=== PATIENT | male | born 1950 | race Caucasian/White ===

== ENCOUNTER 2020-04-09 09:44 | Inpatient (IN) ==
--- NOTE | 2020-04-09 10:43 | DR.SOBA ---
HPI Time Seen Time Seen by Provider: 04/09/20 10:38 Primary Care Physician Primary Care Physician: vaibhav rodriguez HPI Comment HPI Comment: PATIENT IS 69YR OLD MALE IN ER WITH COUGH, CONGESTION, FEVER AND INCREASING SOB TIMES 2 WEEKS. HE IS WEAK AND AND NAUSEATED AND HAVING GENERALIZED MUSCLES PAIN. TREATED AT HOME BUT WORSE TODAY. O2 SATURATION IS DEC REASING AND WEAKNESS IS ALSO WORSE TODAY. MUSCLE PAIN 8/10 ACHING PAIN. FEVER OVER 103'F. CURRENTLY FEBRILE IN ER. COVID 19 TEST IN ER IS POSITIVE. HISTORY DM, CAD AND CIRRHOSIS. Complaints Chief Complaint Doctors Comments: INCREASING SOB, FEVER AND COUGH WITH NAUSEA TIMES 2 WEEKS. Chief Complaint:: shortness of breath foer the last 2 weeks, with pending test, nause and fever up to 103 COVID-19 Coronavirus risk:travel/contact w/high risk person: No Has patient experienced Coronavirus symptoms: Yes Coronavirus symptoms experienced: Fever, Coughing and Shortness of Breath Source History Provided: Patient Mode of Arrival Mode of Arrival: Ambulatory Timing Onset of Chief Complaint: 03/28/20 Duration Duration: Weeks Context Onset:: At Rest PE Risk Factors:: None History of:: None Currently on:: Neither Prehospital Care:: None Modifying Factors Worsens:: Exertion Improves:: Rest Associated Signs and Symptoms Associated Signs and Symptoms: Cough If Chest Pain Quality: Pleuritic Location: Substernal If Cough Cough: Nonproductive PMH PMH Past Medical History: Yes Past Medical History: Anemia, Cirrhosis, Coronary Artery Disease, Diabetes, Dyslipidemia and GERD Past Surgical History: Yes Surgical History: CABG/Valve Surgery Family History History of Family Medical Conditions: Yes Family Medical History: Coronary Artery Disease and Hypertension Social History Type of Tobacco Use: None Does any household member use tobacco: No Alcohol Use: None Do you use any recreational Drugs:: No Lives With: Family Lives Where: Home Travel Risk Coronavirus risk:travel/contact w/high risk person: No Has patient experienced Coronavirus symptoms: Yes Coronavirus symptoms experienced: Fever, Coughing and Shortness of Breath Infectious screening In the last 2 months have you had wt loss of >10#?: NO Have you had fever, night sweats or hemotysis?: No Have you traveled outside the country in the last 6 months?: No Isolation: Droplet ROS Review of Systems Constitutional: See HPI, Fever, Weakness, Fatigue and Loss of Appetite Eyes: No Symptoms Reported and See HPI ENTM: See HPI, Nose Discharge and Nose Congestion; negative Ear Pain Respiratoy: See HPI, Non-Productive Cough and Short of Breath Cardiovascular: Chest Pain (TIGHTNESS.); negative See HPI Gastrointestinal/Abdominal: See HPI and Nausea; negative Diarrhea and Vomiting Genitourinary: No Symptoms Reported and See HPI; negative Dysuria, Frequency and Hematuria Neurological: See HPI, Headache and Weakness; negative Dizziness Musculoskeletal: See HPI, Back Pain and Muscle Pain Integumentary: No Symptoms Reported and See HPI; negative Change in Color, Rash and Juandice Hematologic/Lymphatic: No Symptoms Reported and See HPI; negative Easy Bruising and Swollen Glands Endocrine: See HPI and Decreased Appetite; negative Increased Thirst and Increased Urine Psychiatric: No Symptoms Reported and See HPI All Other Systems: Reviewed and Negative PE Vital Signs Vitals: Temperature 100.8 F Pulse Rate 75 Respiratory Rate 20 Blood Pressure 166/72 O2 Sat by Pulse Oximetry 92 General Limitations: No Limitations General Appearance: Alert and In Distress Head Head Exam: Normal Inspection and Atraumatic Eyes Eye exam: Normal Appearance and PERRL; negative Scleral Icterus and Conjunctival Injection ENT ENT Exam: Normal External Ear Exam and TM's Normal Bilaterally; negative Normal Oropharynx Neck Neck Exam: Normal Inspection and Trachea Midline; negative Tenderness and Lymphadenopathy Chest Chest Inspection: Normal Inspection and Symmetric Chest Wall Rise; negative Tenderness Respiratory Respiratory Exam: Respiratory Distress; negative Accessory Muscle Use and Chest Wall Tenderness Respiratory Exam: Bilateral: Rhonchi and Lower: Rhonchi Cardiovascular Cardiovascular Exam: Regular Rate, Normal Rhythm and Normal Heart Sounds; negative Systolic Murmur and Diastolic Murmur Abdominal Exam Abdominal Exam: Normal Inspection, Normal Bowel Sounds and Soft; negative Tenderness Extremities Extremities Exam: Normal Inspection and Normal Capillary Refill; negative Tenderness and Calf Tenderness Back Back Exam: Normal Inspection Neurologic Neurological Exam: Alert, Oriented X3 and CN II-XII Intact; negative Motor Sensory Deficit Psychiatric Psychiatric Exam: Normal Affect and Normal Mood Skin Skin Exam: Warm, Dry, Intact and Normal Color MDM Differential Diagnosis Differential Diagnosis: Bronchitis, CHF, Dysrhythmia, Hyponatremia, Mycardial Infarction, Pneumonia, Respiratory Insufficiency, Sinusitis and URI COURSE Treatment Treatment: SEE ORDERS. TORADOL 30MG IV, NS IV DRIP, MORPHIN 4MG IV, ZOFRAN 4MG IV AND LEVAQUIN 750MG. Reevaluation 1st: Improved (PAIN SLIGHTLY IMPROVED.) 2nd: Improved (PAIN MUCH IMPROVED WITH IV MORPHIN.) Education/Counseling Education/Counseling: Patient Educated On: Diagnosis ROR Labs Reviewed Laboratory Results Reviewed?: Yes Result Diagrams: 04/12/20 04:29 04/12/20 05:45 Laboratory: 04/09/20 10:49 Blood Blood Culture - Final 04/09/20 10:45 Blood Blood Culture - Final WBC 2.9 X10^3/uL (3.6-10.0) L 04/09/20 10:45 RBC 4.27 X10^6/uL (4.7-6.0) L 04/09/20 10:45 Hgb 11.6 g/dL (13.5-18.0) L 04/09/20 10:45 Hct 35.3 % (42.0-54.0) L 04/09/20 10:45 MCV 82.8 fL (80.0-100.0) 04/09/20 10:45 MCH 27.2 pg (27.0-34.0) 04/09/20 10:45 MCHC 32.9 g/dL (33.0-35.0) L 04/09/20 10:45 RDW 15.4 % (11.6-16.5) 04/09/20 10:45 Plt Count 36 X10^3/uL (150.0-450.0) L 04/09/20 10:45 Plt Count Comment Decreased (ADEQUATE) 04/09/20 10:45 MPV 10.0 fL (7.4-11.0) 04/09/20 10:45 Neut % (Auto) 76.9 % (42.0-75.0) H 04/09/20 10:45 Lymph % (Auto) 9.0 % (21.0-51.0) L 04/09/20 10:45 Foster % (Auto) 14.0 % (0.0-13.0) H 04/09/20 10:45 Eos % (Auto) 0.0 % (0.9-2.9) L 04/09/20 10:45 Baso % (Auto) 0.1 % (0.2-1.0) L 04/09/20 10:45 Neut # (Auto) 2.2 x10^3/uL (2.2-4.8) 04/09/20 10:45 Lymph # (Auto) 0.3 X10^3/uL (1.3-2.9) L 04/09/20 10:45 Foster # (Auto) 0.4 x10^3/uL (0.3-0.8) 04/09/20 10:45 Eos # (Auto) 0.0 x10^3/uL (0.0-0.2) 04/09/20 10:45 Baso # (Auto) 0.0 X10^3/uL (0.0-0.1) 04/09/20 10:45 Absolute Nucleated RBC 0.1 /100WBC 04/09/20 10:45 Plt Morphology Comment Normal (NORMAL) 04/09/20 10:45 RBC Morphology Normal (NORMAL) 04/09/20 10:45 Sample Site Rb 04/09/20 10:55 ABG pH 7.440 (7.35-7.45) 04/09/20 10:55 ABG pCO2 35.0 mmHg (35.0-45.0) 04/09/20 10:55 ABG pO2 50.0 mmHg (80.0-100.0) L 04/09/20 10:55 ABG HCO3 23.8 mmol/L (22-26) 04/09/20 10:55 ABG O2 Saturation 87.0 % (90-100) L 04/09/20 10:55 ABG Base Excess 0.0 mmol/L (-2.0-2.0) 04/09/20 10:55 Silverio Test Na 04/09/20 10:55 A-a Gradient 56.0 mmHg 04/09/20 10:55 FiO2 21.0 04/09/20 10:55 Blood Gas Comments Pt dillon well. cdn 04/09/20 10:55 Sodium 132 mmol/L (136-145) L 04/09/20 10:45 Corrected Sodium 135 mmol/L (136-145) L 04/09/20 10:45 Potassium 4.6 mmol/L (3.5-5.1) 04/09/20 10:45 Chloride 98 mmol/L (98-107) 04/09/20 10:45 Carbon Dioxide 24.2 mmol/L (21-32) 04/09/20 10:45 BUN 26 mg/dL (7-18) H 04/09/20 10:45 Creatinine 1.68 mg/dL (0.70-1.30) H 04/09/20 10:45 Est GFR (MDRD) Af Amer 52 (>60) L 04/09/20 10:45 Est GFR (MDRD) Non-Af 43 (>60) L 04/09/20 10:45 Glucose 226 mg/dL (65-99) H 04/09/20 10:45 Lactic Acid 2.5 mmol/L (0.4-2.0) H 04/09/20 10:45 Calcium 8.6 mg/dL (8.5-10.1) 04/09/20 10:45 Corrected Calcium 9.3 mg/dL (8.5-10.1) 04/09/20 10:45 Ferritin 181 ng/mL (26-388) 04/09/20 10:45 Total Bilirubin 0.70 mg/dL (0.2-1.0) 04/09/20 10:45 AST 70 Units/L (15-37) H 04/09/20 10:45 ALT 36 Units/L (12-78) 04/09/20 10:45 Alkaline Phosphatase 74 Units/L (46-116) 04/09/20 10:45 Lactate Dehydrogenase 418 Units/L (85-227) H 04/09/20 10:45 Creatine Kinase 137 Units/L (39-308) 04/09/20 10:45 CK-MB (CK-2) < 1.0 ng/mL (0-4.0) 04/09/20 10:45 CK/CKMB % Calc 0.7 % (<4) 04/09/20 10:45 Troponin I 0.04 ng/mL (0-1.5) 04/09/20 10:45 C-Reactive Protein 42.90 mg/L (0-3.0) H 04/09/20 10:45 Total Protein 7.3 g/dL (6.4-8.2) 04/09/20 10:45 Albumin 3.1 g/dL (3.4-5.0) L 04/09/20 10:45 Globulin 4.2 g/dL (2.5-4.5) 04/09/20 10:45 Albumin/Globulin Ratio 0.7 Ratio (1.1-2.1) L 04/09/20 10:45 SARS-CoV-2 (PCR) Positive (NEGATIVE) A 04/09/20 13:40 XRAY XRAY Interpreted by: Radiologist (REPORT NOTED AND DISCUSSED WITG PATIENT.) and Self EKG Rate: 76 [place]: Normal Rhythm: NSR Block: None Hypertrophy: None ST: Nonsp Opioid Opioid Risk Tool Age (Shad box if 16-45): No History of Preadolescent Sexual Abuse: No Total: 0 Total Score Risk Category: Low Risk Copyright: Anthony SOLARES predicting aberrant behaviors Diagnosis Discharge Problem: Hypoxia, COVID-19, Pneumonia Instructions Forms: Precautions for COVID19 Patient Portal Social Distancing
[2020-04-09 11:08] LABS: ABG HCO3 23.8 mmol/L (22-26)
[2020-04-09 11:10] LABS: BASOPHILS % (AUTO) 0.1 % (0.2-1.0); HEMATOCRIT 35.3 % (42.0-54.0); HEMOGLOBIN 11.6 g/dL (13.5-18.0); LYMPHOCYTES # (AUTO) 0.3 X10^3/uL (1.3-2.9); MEAN CORPUSCULAR HEMOGLOBIN 27.2 pg (27.0-34.0); MEAN CORPUSCULAR HGB CONC 32.9 g/dL (33.0-35.0); MEAN CORPUSCULAR VOLUME 82.8 fL (80.0-100.0); MONOCYTES # (AUTO) 0.4 x10^3/uL (0.3-0.8); NEUTROPHILS # (AUTO) 2.2 x10^3/uL (2.2-4.8); NEUTROPHILS % (AUTO) 76.9 % (42.0-75.0); PLATELET COUNT 36 X10^3/uL (150.0-450.0); RED BLOOD COUNT 4.27 X10^6/uL (4.7-6.0); RED CELL DISTRIBUTION WIDTH 15.4 % (11.6-16.5); WHITE BLOOD COUNT 2.9 X10^3/uL (3.6-10.0)
[2020-04-09 11:18] LABS: BLOOD UREA NITROGEN 26 mg/dL (7-18); CALCIUM 8.6 mg/dL (8.5-10.1); CARBON DIOXIDE 24.2 mmol/L (21-32); CHLORIDE 98 mmol/L (98-107); COR NA(FOR HYPERGLY) 135 mmol/L (136-145); CREATININE 1.68 mg/dL (0.70-1.30); SODIUM 132 mmol/L (136-145); TROPONIN I 0.04 ng/mL (0-1.5); eGFR NON BLACK RACES 43 (>60)
[2020-04-09 11:22] LABS: ALANINE AMINOTRANSFERASE 36 Units/L (12-78); ALBUMIN 3.1 g/dL (3.4-5.0); ALKALINE PHOSPHATASE 74 Units/L (46-116); ASPARTATE AMINO TRANSFERASE 70 Units/L (15-37); CKMB % 0.7 % (<4); COR CA(FOR HYPOALB) 9.3 mg/dL (8.5-10.1); CREATINE KINASE 137 Units/L (39-308); CREATINE KINASE MB < 1.0 ng/mL (0-4.0); LACTATE DEHYDROGENASE 418 Units/L (85-227); TOTAL PROTEIN 7.3 g/dL (6.4-8.2)
[2020-04-09 11:27] LABS: LACTIC ACID 2.5 mmol/L (0.4-2.0)
[2020-04-09] MEDS ORDERED: TORADOL 30 MG VIAL IVP ONE (11:28)
[2020-04-09 11:37] LABS: PLATELET MORPHOLOGY COMMENT NORMAL (NORMAL)
--- NOTE | 2020-04-09 12:22 | RAD ---
HISTORYCOVID EXPOSURE, SOBX 2 WEEKS, FEVERSTUDYCHEST, 1 VIEWCOMPARISONNoneFINDINGSCardiomegaly. Sternotomy wires. Patchy multifocal bilateral pulmonary opacities typical of COVID-19. No sizable effusion or visible pneumothorax. No overt pulmonary edema. No acute osseous finding.IMPRESSIONCardiomegaly with pulmonary findings typical of COVID-19.Electronically signed by: Mazin Snow (Apr 09, 2020 12:20:38)
[2020-04-09] MEDS ORDERED: LEVAQUIN TAB 750 MG PO ONE (12:36)
[2020-04-09] MEDS ORDERED: ZOFRAN INJ 4 MG VIAL IVP ONE (12:50)
[2020-04-09] MEDS ORDERED: MORPHINE SULFATE INJ 4 MG IVP ONE (12:50)
[2020-04-09] MEDS ORDERED: ZOFRAN INJ 4 MG VIAL ONE ×2 (13:07→19:22)
[2020-04-09] MEDS ORDERED: NS 1000 ML 1,000 ML ONE (13:07)
[2020-04-09] MEDS ORDERED: MORPHINE SULFATE INJ 4 MG ONE (13:07)
[2020-04-09] MEDS ORDERED: LEVAQUIN TAB 500 MG ONE (13:08)
[2020-04-09] MEDS: LEVAQUIN TAB 250 MG ONE ×2 (13:30→13:51)
[2020-04-09] MEDS: NS 1000 ML 1,000 ML IV SCH ×2 (13:31→20:41)
[2020-04-09] MEDS ORDERED: DECADRON INJ PRESERVATIVE-FREE IVP ONE (15:08)
[2020-04-09] MEDS ORDERED: DECADRON INJ ONE (15:11)
[2020-04-09] MEDS ORDERED: DUONEB 0.5 MG/3 MG (3 mL) NEB SCH (17:00)
[2020-04-09 17:55] VITALS: BMI 40.1
[2020-04-09] MEDS ORDERED: TUSSIONEX PENNKINETIC SUSP PO PRN (19:16)
[2020-04-09] MEDS ORDERED: ZOFRAN INJ 4 MG VIAL IVP PRN (19:17)
[2020-04-09] MEDS ORDERED: PLAQUENIL ONE (19:48)
[2020-04-09] MEDS ORDERED: ZINC SULFATE ONE (19:48)
[2020-04-09] MEDS ORDERED: LOVENOX INJ 30 MG SYR SC ONE (19:48)
[2020-04-09] MEDS ORDERED: DUONEB 0.5 MG/3 MG (3 mL) NEB ONE (20:03)
[2020-04-09] MEDS: ROBITUSSIN DM PO SCH ×2 (20:39→20:41)
[2020-04-09] MEDS: ZINC SULFATE PO SCH (20:40)
[2020-04-09] MEDS: SNACK - Diabetic Appropriate PO SCH (20:41)
[2020-04-09] MEDS: ASCORBIC ACID INJ MULTI-DOSE VIAL 1,500 MG in NS 100 ML IV 100 ML IV SCH (20:41)
[2020-04-09] MEDS: ULTRAM PO PRN (20:43)
[2020-04-09] MEDS ORDERED: MUCOMYST (RESPIRATORY USE ONLY) ONE (20:59)
[2020-04-09] MEDS ORDERED: LOVENOX INJ 30 MG SYR SC SCH (21:00)
[2020-04-09] MEDS ORDERED: PLAQUENIL PO SCH (21:00)
[2020-04-09] MEDS: DUONEB 0.5 MG/3 MG (3 mL) NEB SCH (21:16)
[2020-04-09] MEDS: PULMICORT NEB TX 0.5 MG NEB SCH (21:16)
[2020-04-09 23:47] LABS: CKMB % 0.8 % (<4); TROPONIN I 0.04 ng/mL (0-1.5)
[2020-04-10] MEDS: ASCORBIC ACID INJ MULTI-DOSE VIAL 1,500 MG in NS 100 ML IV 100 ML IV SCH (02:48)
[2020-04-10 03:22] LABS: BILIRUBIN,URINE NEGATIVE (NEGATIVE); BLOOD/HEMOGLOBIN,URINE NEGATIVE (NEGATIVE); GLUCOSE, URINE 2+ (NEGATIVE); KETONES,URINE NEGATIVE (NEGATIVE); LEUKOCYTE ESTERASE ,URINE NEGATIVE (NEGATIVE); NITRITES,URINE NEGATIVE (NEGATIVE); PROTEIN,URINE 3+ (NEGATIVE); UROBILINOGEN,URINE NORMAL (NORMAL)
[2020-04-10 03:35] LABS: APPEARANCE,URINE CLEAR (CLEAR); BACTERIA,URINE NEGATIVE /HPF (NEGATIVE); COLOR,URINE YELLOW (YELLOW); RBC,URINE NONE SEEN /HPF (0-3); SQUAMOUS EPITHELIAL CELL,UR RARE /HPF (NEGATIVE)
[2020-04-10] MEDS: NS 1000 ML 1,000 ML IV SCH ×4 (05:19→21:40)
[2020-04-10 05:38] LABS: ABG ALLEN TEST POS; ABG BASE EXCESS -1.7 mmol/L (-2.0-2.0)
[2020-04-10 05:41] LABS: ALBUMIN 2.5 g/dL (3.4-5.0); CALCIUM 8.3 mg/dL (8.5-10.1); CARBON DIOXIDE 22.5 mmol/L (21-32); CKMB % 1.1 % (<4); COR CA(FOR HYPOALB) 9.5 mg/dL (8.5-10.1); CREATINE KINASE MB 1.4 ng/mL (0-4.0); CREATININE 1.64 mg/dL (0.70-1.30); TOTAL PROTEIN 6.3 g/dL (6.4-8.2); TROPONIN I 0.03 ng/mL (0-1.5)
[2020-04-10] MEDS: DUONEB 0.5 MG/3 MG (3 mL) NEB SCH ×3 (05:46→20:45)
[2020-04-10] MEDS: ULTRAM PO PRN (06:02)
--- NOTE | 2020-04-10 06:21 | RAD ---
HISTORYCOVID EXPOSURE, SOBX 2 WEEKS, FEVERSTUDYCHEST, 1 VIEWCOMPARISONOne day priorTECHNIQUEAP view of the chestFINDINGSCardiac silhouette is stably enlarged status post median sternotomy and CABG. Stable bilateral scattered airspace and interstitial opacities. No pleural effusion or pneumothorax.IMPRESSIONNo significant changeElectronically signed by: Frantz Shin (Apr 10, 2020 06:21:18)
[2020-04-10 06:48] LABS: CREATINE KINASE MB 1.4 ng/mL (0-4.0); TROPONIN I 0.02 ng/mL (0-1.5)
[2020-04-10] MEDS ORDERED: VITAMIN A PO SCH (09:00)
[2020-04-10] MEDS: PULMICORT NEB TX 0.5 MG NEB SCH ×2 (09:00→20:45)
[2020-04-10] MEDS ORDERED: VITAMIN D (1.25MG) PO SCH (09:00)
[2020-04-10] MEDS ORDERED: DECADRON TAB PO SCH (09:00)
[2020-04-10 09:10] LABS: BASOPHILS % (AUTO) 0.2 % (0.2-1.0); HEMATOCRIT 30.8 % (42.0-54.0); HEMOGLOBIN 10.3 g/dL (13.5-18.0); LYMPHOCYTES # (AUTO) 0.2 X10^3/uL (1.3-2.9); MEAN CORPUSCULAR HEMOGLOBIN 27.4 pg (27.0-34.0); MEAN CORPUSCULAR HGB CONC 33.6 g/dL (33.0-35.0); MEAN CORPUSCULAR VOLUME 81.6 fL (80.0-100.0); MEAN PLATELET VOLUME 9.9 fL (7.4-11.0); MONOCYTES # (AUTO) 0.3 x10^3/uL (0.3-0.8); MONOCYTES % (AUTO) 10.6 % (0.0-13.0); NEUTROPHILS # (AUTO) 1.9 x10^3/uL (2.2-4.8); NEUTROPHILS % (AUTO) 80.2 % (42.0-75.0); PLATELET COUNT 36 X10^3/uL (150.0-450.0); RED BLOOD COUNT 3.78 X10^6/uL (4.7-6.0); RED CELL DISTRIBUTION WIDTH 15.4 % (11.6-16.5); WHITE BLOOD COUNT 2.4 X10^3/uL (3.6-10.0)
[2020-04-10] MEDS: ROBITUSSIN DM PO SCH ×4 (09:10→20:57)
[2020-04-10] MEDS: TRICOR TAB 160 MG PO SCH (09:10)
[2020-04-10] MEDS: ZINC SULFATE PO SCH ×2 (09:10→21:40)
[2020-04-10] MEDS ORDERED: REMDESIVIR (INVESTIGATIONAL DRUG GS-5734) 200 MG in NS 250 ML IV 250 ML IV NR (10:37)
[2020-04-10 10:49] LABS: PLATELET MORPHOLOGY COMMENT NORMAL (NORMAL)
[2020-04-10] MEDS ORDERED: LOVENOX INJ 30 MG SYR SC SCH (11:00)
--- NOTE | 2020-04-10 12:19 | DR.H&P ---
H&P - History & Physical for Day of: H&P Date: 04/09/20 ( ) - Chief Complaint Chief Complaint: SOB, FEVER, COUGH, NAUSEA - History of Present Illness History of Present Illness: IS A 69 YEAR OLD PATIENT OF OURS. HE PRESENTED TO THE ER WITH SHORTNESS OF BREATH, COUGH, FEVER, AND NAUSEA. SYMPTOMS HAVE BEEN PRESENT FOR APPROXIMATELY TWO WEEKS. HE DOES ADMIT TO BEING TESTED FOR COVID-19, BUT REPORTS ARE PENDING. HE HAS BEEN TAKING AZITHROMYCIN 250MG PO DAILY, A MEDROL DOSEPACK, SYMBICORT INHALER, AND PLAQUENIL 200MG PO BID SINCE 04/07/20. HE DENIES IMPROVEMENT IN SYMPTOMS DESPITE COMPLIANCE WITH MEDICATIONS. HIS PMH INCLUDES: ANEMIA, CIRRHOSIS, CAD, DIABETES, DYSLIPIDEMIA, AND GERD. AUSCULTATION OF LUNG KING REVEALED SCATTERED RHONCHI. ON ARRIVAL TO THE ER, VITALS WERE 100.8-91-34-85%RA-170/75. HE WAS PLACED ON NASAL CANNULA AT 2L/MIN. LABS WERE OBTAINED. ABNORMAL LAB VALUES INCLUDE THE FOLLOWING: WBC 2.9, RBC 4.27, HGB 11.6, HCT 35.3, PLT COUNT 36, SODIUM 132, BUN 26, CREATININE 1.68, GLUCOSE 226, LACTIC ACID 2.5, AST 70, LACTATE DEHYDROGENASE 418, CRP 42.90, ALBUMIN 3.1. CARDIAC ENZYMES WERE WITHIN NORMAL LIMITS. EKG OBTAINED AND REVEALED: SINUS RHYTHM WITH HR 76. A CHEST XRAY WAS OBTAINED AND REVEALED: Cardiomegaly. Sternotomy wires. Patchy multifocal bilateral pulmonary opacities typical of COVID-19. No sizable effusion or visible pneumothorax. No overt pulmonary edema. No acute osseous finding. HE WAS ADMITTED TO THE HOSPITAL FOR FURTHER EVALUATION AND TREATMENT OF PNEUMONIA DUE TO COVID-19 AND HYPOXIA. HE WAS STARTED ON NS AT 125ML/HR, REMDESIVIR 100MG IV DAILY, LEVAQUIN 500MG IV DAILY, SOLU-MEDROL 80MG IV Q8H, DUONEBS TID, PULMICORT NEBS BID, MUCOMYST IN NEB [place] BID, PEPCID 20MG IV DAILY, PROTONIX 40MG IV DAILY, ROBITUSSIN DM 10 ML PO QID, TUSSIONEX 5ML PO Q12H, TESSALON PERLES TID, HUMULIN R SLIDING SCALE, ZINC 220MG PO BID, TIRCOR 160MG PO DAILY, AND ZOFRAN 4MG IV Q6H PRN. WE WILL REVIEW HIS HOME MEDICATIONS. WE WILL ORDER FOR THE SMART VEST TO BE USED. WE WILL ALSO ORDER A UNIT OF CONVALESCENT PLASMA TO BE TRANSFUSED WHEN IT IS AVAILABLE. OTHERWISE, WE WILL FOLLOW UP WITH AM LABS, CHEST XRAY, ABG, AND CONTINUE TO MONITOR. - Past Medical History Past Medical History: Coronary Artery Disease, Dyslipidemia, Diabetes, Cirrhosis, Anemia, GERD - Past Surgical History Surgical History: Appendectomy, Tonsillectomy - Family History Family Medical History: Cancer, [place] - Social History Does patient currently use any type of tobacco product: No Have you used tobacco products in the last 12 months: No Type of Tobacco Use: Cigarettes How many years tobacco product used: 20 Does any household member use tobacco: No Alcohol Use: None Drug Use: None - Medications Home Medications: Penicillins Allergy (Verified 04/09/20 10:14) CONTINUE taking the following medications azithromycin 500 mg PO DAILY 04/10/20 [History] budesonide-formoterol [Symbicort] 2 puff INHALATION BID 04/10/20 [History] cefdinir 300 mg PO BID 04/10/20 [History] celecoxib 200 mg PO DAILY 04/10/20 [History] eplerenone 50 mg PO DAILY 04/10/20 [History] fluticasone propionate 2 spray INTRANASAL DAILY 04/10/20 [History] furosemide 40 mg PO BID 04/10/20 [History] hydroxychloroquine 200 mg PO BID 04/10/20 [History] metformin 1,000 mg PO BID 04/10/20 [History] methylprednisolone 4 mg PO DIRECTED 04/10/20 [History] ondansetron HCl 4 mg PO Q8H PRN 04/10/20 [History] pantoprazole 40 mg PO DAILY 04/10/20 [History] pioglitazone 30 mg PO DAILY 04/10/20 [History] rifaximin [Xifaxan] 550 mg PO BID 04/10/20 [History] rosuvastatin 20 mg PO HS 04/10/20 [History] valsartan 320 mg PO DAILY 04/10/20 [History] - Review of Systems Constitutional: See HPI, Fever, Weakness Eyes: No Symptoms Reported ENT: No Symptoms Reported Respiratory: Cough, Shortness of Breath, SOB with Excertion Cardiovascular: No Symptoms Reported Gastrointestinal: See HPI, Nausea Genitourinary: No Symptoms Reported Musculoskeletal: No Symptoms Reported Skin: No Symptoms Reported Neurological: Weakness - Physical Exam Vital Signs: Temperature 98.5 F Pulse Rate [Right Brachial] 93 Pulse Rate 88 Respiratory Rate 22 Blood Pressure [Right Arm] 170/70 Blood Pressure 166/72 O2 Sat by Pulse Oximetry 90 Oriented: Normal Eyes: Normal Ear: Normal Nose: Normal Throat: Normal Respiratory: Diminished Throughout, Rhonchi Throughout Cardiovascular: Normal : Normal Auscultation: Bowel Sounds: Normal Palpation: Normal Tenderness: Normal Skin: Normal Musculoskeletal: Normal Psychiatric: Normal Mood Description: Calm Affect: Normal Speech Pattern: Clear - Assessment/Plan (1) Pneumonia due to COVID-19 virus Status: Acute Plan: ADMIT, NS AT 125ML/HR, REMDESIVIR 100MG IV DAILY, LEVAQUIN 500MG IV DAILY, SOLU-MEDROL 80MG IV Q8H, DUONEBS TID, PULMICORT NEBS BID, MUCOMYST IN NEB [place] BID, PEPCID 20MG IV DAILY, PROTONIX 40MG IV DAILY, ROBITUSSIN DM 10 ML PO QID, TUSSIONEX 5ML PO Q12H, TESSALON PERLES TID, HUMULIN R SLIDING SCALE, ZINC 220MG PO BID, TIRCOR 160MG PO DAILY, AND ZOFRAN 4MG IV Q6H PRN, SUPPLEMENTAL OXYGEN (2) Hypoxia Status: Acute (3) Diabetes mellitus Qualifiers: Diabetes mellitus type: type 2 Diabetes mellitus longterm insulin use: with blindstitch lining feller use Diabetes mellitus complication status: with other specified complication Qualified Code(s): E11.69 - Type 2 diabetes mellitus with other specified complication; Z79.4 - snf (current) use of insulin Status: Chronic (4) Anemia Qualifiers: Anemia type: iron deficiency Iron deficiency anemia type: unspecified iron deficiency Qualified Code(s): D50.9 - Iron deficiency anemia, unspecified Status: Chronic (5) Cirrhosis Qualifiers: Hepatic cirrhosis type: unspecified hepatic cirrhosis Ascites presence: unspecified Qualified Code(s): K74.60 - Unspecified cirrhosis of liver Status: Chronic (6) CAD (coronary artery disease) Qualifiers: Coronary Disease-Associated Artery/Lesion type: [place] artery [place] vs. transplanted heart: [place] heart Associated angina: angina presence unspecified Qualified Code(s): I25.10 - Atherosclerotic heart disease of [place] coronary artery without angina pectoris Status: Chronic (7) Dyslipidemia Status: Chronic (8) GERD (gastroesophageal reflux disease) Qualifiers: Esophagitis presence: esophagitis presence not specified Qualified Code(s): K21.9 - Gastro-esophageal reflux disease without esophagitis Status: Chronic - Allergies Allergies/Adverse Reactions: Allergies Allergy/AdvReac Type Severity Reaction Status Date / Time Penicillins Allergy Verified 04/09/20 10:14
[2020-04-10] MEDS: PROTONIX INJ 40 MG VIAL IVP SCH (12:21)
[2020-04-10] MEDS: TUSSIONEX PENNKINETIC SUSP PO SCH ×2 (12:22→23:23)
[2020-04-10] MEDS: PEPCID 20 MG IV PREMIX* 20 MG/50 ML BAG IV SCH (12:22)
[2020-04-10] MEDS: HumuLIN R SUBCUT PRN ×3 (12:23→21:43)
[2020-04-10] MEDS ORDERED: CELEBREX PO SCH (13:00)
[2020-04-10] MEDS: SOLU-Medrol 40 MG VIAL IVP SCH ×2 (14:30→21:41)
[2020-04-10] MEDS: TESSALON PERLES PO SCH ×2 (14:30→21:41)
[2020-04-10] MEDS: LEVAQUIN PREMIX IV 500 MG 500 MG/100 ML BAG IV SCH (14:45)
[2020-04-10] MEDS: FLONASE NASAL SPRAY ENOSTRIL SCH (15:46)
[2020-04-10] MEDS: DIOVAN TAB 160 MG PO SCH (15:47)
[2020-04-10] MEDS: XIFAXAN PO SCH ×2 (15:48→21:40)
[2020-04-10] MEDS: EPLERENONE 50 MG PO SCH (15:50)
[2020-04-10 16:59] LABS: TROPONIN I 0.11 ng/mL (0-1.5)
[2020-04-10 17:00] LABS: CKMB % 2.6 % (<4)
[2020-04-10] MEDS ORDERED: PROCALAMINE 3 % 1,000 ML IV SCH (17:00)
[2020-04-10 17:01] LABS: CREATINE KINASE MB 5.1 ng/mL (0-4.0)
[2020-04-10] MEDS: XANAX PO PRN (17:30)
[2020-04-10] MEDS: ALBUMIN HUMAN 25%- 100 ML 100 ML IV SCH (19:00)
[2020-04-10] MEDS ORDERED: MUCOMYST (RESPIRATORY USE ONLY) ONE (19:56)
[2020-04-10] MEDS: MUCOMYST (RESPIRATORY USE ONLY) NEB SCH (20:45)
[2020-04-10] MEDS: SNACK - Diabetic Appropriate PO SCH (20:55)
[2020-04-10] MEDS: CRESTOR TAB 10 MG PO SCH (20:56)
[2020-04-10 22:08] LABS: CKMB % 4.1 % (<4); TROPONIN I 0.76 ng/mL (0-1.5)
[2020-04-10 22:15] LABS: CREATINE KINASE MB 11.7 ng/mL (0-4.0)
[2020-04-10] MEDS ORDERED: ASPIRIN 81 MG CHEWTAB ONE (23:26)
[2020-04-10] MEDS ORDERED: ASPIRIN 81 MG CHEWTAB PO SCH (23:45)
[2020-04-11 02:19] LABS: CKMB % 5.3 % (<4); TROPONIN I 1.47 ng/mL (0-1.5)
[2020-04-11 02:27] LABS: CREATINE KINASE MB 17.2 ng/mL (0-4.0)
[2020-04-11 04:33] LABS: ABG ALLEN TEST POS; ABG BASE EXCESS -2.9 mmol/L (-2.0-2.0); ABG HCO3 22.6 mmol/L (22-26)
[2020-04-11] MEDS: DUONEB 0.5 MG/3 MG (3 mL) NEB SCH ×4 (05:01→21:00)
[2020-04-11] MEDS: SOLU-Medrol 40 MG VIAL IVP SCH ×3 (05:40→21:30)
[2020-04-11] MEDS: TESSALON PERLES PO SCH ×3 (05:41→21:30)
[2020-04-11] MEDS: NS 1000 ML 1,000 ML IV SCH ×3 (05:41→22:01)
[2020-04-11 05:48] LABS: BASOPHILS % (AUTO) 0.1 % (0.2-1.0); HEMATOCRIT 32.5 % (42.0-54.0); HEMOGLOBIN 10.7 g/dL (13.5-18.0); LYMPHOCYTES # (AUTO) 0.3 X10^3/uL (1.3-2.9); LYMPHOCYTES % (AUTO) 5.1 % (21.0-51.0); MEAN CORPUSCULAR HEMOGLOBIN 27.2 pg (27.0-34.0); MEAN CORPUSCULAR VOLUME 82.3 fL (80.0-100.0); MEAN PLATELET VOLUME 10.5 fL (7.4-11.0); MONOCYTES # (AUTO) 0.4 x10^3/uL (0.3-0.8); MONOCYTES % (AUTO) 6.7 % (0.0-13.0); NEUTROPHILS # (AUTO) 4.9 x10^3/uL (2.2-4.8); NEUTROPHILS % (AUTO) 88.1 % (42.0-75.0); PLATELET COUNT 40 X10^3/uL (150.0-450.0); RED BLOOD COUNT 3.95 X10^6/uL (4.7-6.0); RED CELL DISTRIBUTION WIDTH 15.9 % (11.6-16.5); WHITE BLOOD COUNT 5.6 X10^3/uL (3.6-10.0)
--- NOTE | 2020-04-11 06:02 | RAD ---
HISTORYSOBSTUDYCHEST, 1 VIEWCOMPARISONOne day priorTECHNIQUEAP view of the chestFINDINGSStatus post median sternotomy. Cardiac silhouette is stably enlarged. Interval worsening in bilateral airspace disease, now more diffuse. No pleural effusion or pneumothorax.IMPRESSIONWorsened bilateral airspace disease may represent worsening pulmonary edema or pneumonia.Electronically signed by: Frantz Shin (Apr 11, 2020 06:02:20)
[2020-04-11 06:07] LABS: PLATELET MORPHOLOGY COMMENT NORMAL (NORMAL)
[2020-04-11 06:10] LABS: ALBUMIN 2.7 g/dL (3.4-5.0); CALCIUM 8.4 mg/dL (8.5-10.1); CARBON DIOXIDE 21.3 mmol/L (21-32); COR CA(FOR HYPOALB) 9.4 mg/dL (8.5-10.1); CREATININE 1.72 mg/dL (0.70-1.30); TOTAL PROTEIN 6.4 g/dL (6.4-8.2)
[2020-04-11 06:24] LABS: CKMB % 5.5 % (<4)
[2020-04-11 06:30] LABS: CREATINE KINASE MB 17.5 ng/mL (0-4.0)
[2020-04-11] MEDS: HumuLIN R SUBCUT PRN ×3 (06:31→21:30)
[2020-04-11] MEDS ORDERED: VITAMIN D3 125 mcg (5,000 UNITS) PO SCH (09:00)
[2020-04-11] MEDS ORDERED: VITAMIN A PO SCH (09:00)
[2020-04-11] MEDS: XIFAXAN PO SCH ×2 (09:05→21:30)
[2020-04-11] MEDS: FLONASE NASAL SPRAY ENOSTRIL SCH (09:05)
[2020-04-11] MEDS: TRICOR TAB 160 MG PO SCH (09:05)
[2020-04-11] MEDS: ZINC SULFATE PO SCH ×2 (09:05→21:30)
[2020-04-11] MEDS: LEVAQUIN PREMIX IV 500 MG 500 MG/100 ML BAG IV SCH (09:05)
[2020-04-11] MEDS: EPLERENONE 50 MG PO SCH (09:05)
[2020-04-11] MEDS: ROBITUSSIN DM PO SCH ×4 (09:05→21:30)
[2020-04-11] MEDS: PROTONIX INJ 40 MG VIAL IVP SCH (09:05)
[2020-04-11] MEDS: ASPIRIN EC 81 MG PO SCH (09:05)
[2020-04-11] MEDS: XANAX PO PRN ×2 (09:05→21:30)
[2020-04-11] MEDS: DIOVAN TAB 160 MG PO SCH (09:05)
[2020-04-11] MEDS: MUCOMYST (RESPIRATORY USE ONLY) NEB SCH ×2 (09:10→21:00)
[2020-04-11] MEDS: PULMICORT NEB TX 0.5 MG NEB SCH ×2 (09:10→21:00)
[2020-04-11 09:57] LABS: CKMB % 5.7 % (<4)
[2020-04-11 10:00] LABS: CREATINE KINASE MB 16.6 ng/mL (0-4.0); TROPONIN I 2.13 ng/mL (0-1.5)
[2020-04-11] MEDS: ALBUMIN HUMAN 25%- 100 ML 100 ML IV SCH (10:30)
[2020-04-11] MEDS: LASIX IVP SCH ×2 (10:58→17:15)
[2020-04-11] MEDS: TUSSIONEX PENNKINETIC SUSP PO SCH ×2 (10:58→21:30)
[2020-04-11] MEDS: LEVEMIR SC SCH ×2 (11:30→21:30)
[2020-04-11] MEDS: PEPCID 20 MG IV PREMIX* 20 MG/50 ML BAG IV SCH (11:30)
--- NOTE | 2020-04-11 11:36 | PCM.PROG ---
Progress Note - Progress Note for Day of Date of Exam: 04/11/20 - Subjective Subjective: IS BEING TREATED FOR PNEUMONIA DUE TO COVID-19 AND HYPOXIA. TODAY, HE IS ALERT AND ORIENTED, LYING IN BED ON MORNING ROUNDS. HE CONTINUES WITH COMPLAINTS OF COUGH, SHORTNESS OF BREATH, AND NAUSEA. HE HAD AN EPISODE OF CHEST PAIN YESTERDAY AFTERNOON. A SERIES OF CARDIAC ENZYMES AND EKGS WERE OBTAINED WHEN CHEST PAIN STARTED. INITIALLY, HIS CK-MB WAS 5.1, TROPONIN 0.11. AT 21:14, CK-MB WAS 11.7, TROPONIN 0.76. AT 05:30 THIS MORNING, CREATINE KINASE 317, CK-MB 17.5, TROPONIN 2.00. HE DENIES CHEST PAIN AT THE PRESENT TIME. HIS VITALS THIS MORNING ARE: 98.6-82-13-95%HHF-139/63. LABS WERE OBTAINED. ABNORMAL LAB VALUES INCLUDE THE FOLLOWING: RBC 3.95, HGB 10.7, HCT 32.5, PLT COUNT 40, SODIUM 131, BUN 35, CREATININE 1.72, GLUCOSE 418, CALCIUM 8.4, AST 63, CRP 38.40, BNP 417, ALBUMIN 2.7. AN ABG WAS OBTAINED AND REVEALED: PH 7.350, PC02 41, P02 66, HC03 22.6, 02 SAT 92, FI02 84.0. BLOOD CULTURES ARE PENDING. A CHEST XRAY WAS OBTAINED AND REVEALED: Worsened bilateral airspace disease may represent worsening pulmonary edema or pneumonia. HE IS CURRENTLY RECEIVING NS AT 50ML/HR, PROCAL AT 40 ML/HR, ASPIRIN 81MG PO DAILY, REMDESIVIR 100MG IV DAILY, LEVAQUIN 500MG IV DAILY, SOLU-MEDROL 80MG IV Q8H, DUONEBS TID, PULMICORT NEBS BID, MUCOMYST IN NEB [place] BID, PEPCID 20MG IV DAILY, PROTONIX 40MG IV DAILY, ROBITUSSIN DM 10 ML PO QID, TUSSIONEX 5ML PO Q12H, TESSALON PERLES TID, HUMULIN R SLIDING SCALE, ZINC 220MG PO BID, TIRCOR 160MG PO DAILY, XANAX 0.5MG PO BID PRN, FLONASE DAILY, XIFAXIN 550MG PO BID, CRESTOR 20MG PO HS, ULTRAM 50MG PO Q4H PRN, VALSARTAN 320MG PO DAILY, AND ZOFRAN 4MG IV Q6H PRN. TODAY, WE WILL ADMINISTER LASIX 40MG IV BID, LEVEMIR 10MG SC BID, AND OBTAIN AN ECHO AND BNP LEVEL. DUE TO HIS LOW PLATELET COUNT SECONDARY TO CIRRHOSIS, WE WILL HOLD OFF ON LOVENOX AT THIS TIME. WE HAVE ORDERED A UNIT OF CONVALESCENT PLASMA TO BE ADMINISTERED WHEN IT IS AVAILABLE. OTHERWISE, WE PLAN TO FOLLOW UP WITH AM LABS AND CONTINUE TO MONITOR. - Past Medical Family Social History Past Med/Fam/Surg Hx: No changes since H&P Allergies: Allergies Penicillins Allergy (Verified 04/09/20 10:14) - Review of Systems ROS: No change since H&P - Vital Signs and I&O's Vital Signs: Temperature 98.6 F Pulse Rate [Right Brachial] 92 Pulse Rate 84 Respiratory Rate 13 Blood Pressure [Right Arm] 154/72 Blood Pressure 139/63 O2 Sat by Pulse Oximetry 95 Intake and Output: Intake & Output 04/08/20 04/09/20 04/10/20 04/11/20 11:59 11:59 11:59 11:59 Intake Total 2600 / 2600 4949 / 4949 Output Total 300 / 300 1300 / 1300 Balance 2300 / 2300 3649 / 3649 - Physical Exam Oriented: Normal Eyes: Normal Ear: Normal Nose: Normal Throat: Normal Respiratory: Generalized, Wheezes Cardiovascular: Normal : Normal Auscultation: Bowel Sounds: Normal Palpation: Normal Tenderness: Normal Skin: Normal Musculoskeletal: Normal Psychiatric: Normal Mood Description: Calm Affect: Normal Speech Pattern: Clear, Appropriate - Laboratory and Diagnostics Result Diagrams: 04/11/20 05:32 04/11/20 05:32 Labs: 04/09/20 10:49 Blood Blood Culture - Preliminary 04/09/20 10:45 Blood Blood Culture - Preliminary Laboratory WBC 5.6 X10^3/uL (3.6-10.0) 04/11/20 05:32 RBC 3.95 X10^6/uL (4.7-6.0) L 04/11/20 05:32 Hgb 10.7 g/dL (13.5-18.0) L 04/11/20 05:32 Hct 32.5 % (42.0-54.0) L 04/11/20 05:32 MCV 82.3 fL (80.0-100.0) 04/11/20 05:32 MCH 27.2 pg (27.0-34.0) 04/11/20 05:32 MCHC 33.0 g/dL (33.0-35.0) 04/11/20 05:32 RDW 15.9 % (11.6-16.5) 04/11/20 05:32 Plt Count 40 X10^3/uL (150.0-450.0) L 04/11/20 05:32 Plt Count Comment Decreased (ADEQUATE) 04/11/20 05:32 MPV 10.5 fL (7.4-11.0) 04/11/20 05:32 Neut % (Auto) 88.1 % (42.0-75.0) H 04/11/20 05:32 Lymph % (Auto) 5.1 % (21.0-51.0) L 04/11/20 05:32 [place] % (Auto) 6.7 % (0.0-13.0) 04/11/20 05:32 Eos % (Auto) 0.0 % (0.9-2.9) L 04/11/20 05:32 Baso % (Auto) 0.1 % (0.2-1.0) L 04/11/20 05:32 Neut # (Auto) 4.9 x10^3/uL (2.2-4.8) H 04/11/20 05:32 Lymph # (Auto) 0.3 X10^3/uL (1.3-2.9) L 04/11/20 05:32 [place] # (Auto) 0.4 x10^3/uL (0.3-0.8) 04/11/20 05:32 Eos # (Auto) 0.0 x10^3/uL (0.0-0.2) 04/11/20 05:32 Baso # (Auto) 0.0 X10^3/uL (0.0-0.1) 04/11/20 05:32 Absolute Nucleated RBC 0.0 /100WBC 04/11/20 05:32 Total Counted 50 04/10/20 04:48 Neutrophils % (Manual) 82 % (39-76) H 04/10/20 04:48 Lymphocytes % (Manual) 16 % (13-43) 04/10/20 04:48 Monocytes % (Manual) 2 % (4-9) L 04/10/20 04:48 Plt Morphology Comment Normal (NORMAL) 04/11/20 05:32 RBC Morphology Normal (NORMAL) 04/11/20 05:32 Sample Site Lr 04/11/20 04:27 ABG pH 7.350 (7.35-7.45) 04/11/20 04:27 ABG pCO2 41.0 mmHg (35.0-45.0) 04/11/20 04:27 ABG pO2 66.0 mmHg (80.0-100.0) L 04/11/20 04:27 ABG HCO3 22.6 mmol/L (22-26) 04/11/20 04:27 ABG O2 Saturation 92.0 % (90-100) 04/11/20 04:27 ABG Base Excess -2.9 mmol/L (-2.0-2.0) L 04/11/20 04:27 [place] Test Pos 04/11/20 04:27 A-a Gradient 482.0 mmHg 04/11/20 04:27 FiO2 84.0 04/11/20 04:27 Blood Gas Comments [place] well ae 04/11/20 04:27 Sodium 131 mmol/L (136-145) L 04/11/20 05:32 Corrected Sodium 139 mmol/L (136-145) 04/11/20 05:32 Potassium 5.1 mmol/L (3.5-5.1) 04/11/20 05:32 Chloride 100 mmol/L (98-107) 04/11/20 05:32 Carbon Dioxide 21.3 mmol/L (21-32) 04/11/20 05:32 BUN 35 mg/dL (7-18) H 04/11/20 05:32 Creatinine 1.72 mg/dL (0.70-1.30) H 04/11/20 05:32 Est GFR (MDRD) Af Amer 51 (>60) L 04/11/20 05:32 Est GFR (MDRD) Non-Af 42 (>60) L 04/11/20 05:32 Glucose 418 mg/dL (65-99) H 04/11/20 05:32 POC Glucose (mg/dL) 410 mg/dL (65-99) H 04/11/20 11:16 Lactic Acid 2.5 mmol/L (0.4-2.0) H 04/09/20 10:45 Calcium 8.4 mg/dL (8.5-10.1) L 04/11/20 05:32 Corrected Calcium 9.4 mg/dL (8.5-10.1) 04/11/20 05:32 Ferritin 315 ng/mL (26-388) 04/11/20 05:32 Total Bilirubin 0.60 mg/dL (0.2-1.0) 04/11/20 05:32 AST 63 Units/L (15-37) H 04/11/20 05:32 ALT 30 Units/L (12-78) 04/11/20 05:32 Alkaline Phosphatase 81 Units/L (46-116) 04/11/20 05:32 Lactate Dehydrogenase 418 Units/L (85-227) H 04/09/20 10:45 Creatine Kinase 290 Units/L (39-308) 04/11/20 09:00 CK-MB (CK-2) 16.6 ng/mL (0-4.0) H* 04/11/20 09:00 CK/CKMB % Calc 5.7 % (<4) 04/11/20 09:00 Troponin I 2.13 ng/mL (0-1.5) H* 04/11/20 09:00 C-Reactive Protein 38.40 mg/L (0-3.0) H 04/11/20 05:32 B-Natriuretic Peptide 417 pg/mL (0-79) H 04/11/20 05:32 Total Protein 6.4 g/dL (6.4-8.2) 04/11/20 05:32 Albumin 2.7 g/dL (3.4-5.0) L 04/11/20 05:32 Globulin 3.7 g/dL (2.5-4.5) 04/11/20 05:32 Albumin/Globulin Ratio 0.7 Ratio (1.1-2.1) L 04/11/20 05:32 Specimen Type Clean catch urine 04/10/20 02:40 Urine Color Yellow (YELLOW) 04/10/20 02:40 Urine Appearance Clear (CLEAR) 04/10/20 02:40 Urine pH 5.0 (5.0 - 8.0) 04/10/20 02:40 Ur Specific [place] 1.020 (1.000-1.030) 04/10/20 02:40 Urine Protein 3+ (NEGATIVE) 04/10/20 02:40 Urine Glucose (UA) 2+ (NEGATIVE) 04/10/20 02:40 Urine Ketones Negative (NEGATIVE) 04/10/20 02:40 Urine Occult Blood Negative (NEGATIVE) 04/10/20 02:40 Urine Nitrite Negative (NEGATIVE) 04/10/20 02:40 Urine Bilirubin Negative (NEGATIVE) 04/10/20 02:40 Urine Urobilinogen Normal (NORMAL) 04/10/20 02:40 Ur Leukocyte Esterase Negative (NEGATIVE) 04/10/20 02:40 Urine RBC None seen /HPF (0-3) 04/10/20 02:40 Urine WBC None seen /HPF (0-5) 04/10/20 02:40 Ur Squamous Epith Cells Rare /HPF (NEGATIVE) 04/10/20 02:40 Urine Bacteria Negative /HPF (NEGATIVE) 04/10/20 02:40 Ur Culture Indicated? No/not indicated 04/10/20 02:40 SARS-CoV-2 (PCR) Positive (NEGATIVE) A 04/09/20 13:40 Blood Type O POSITIVE 04/10/20 11:20 - Plan (1) Pneumonia due to COVID-19 virus Status: Acute Plan: NS AT 50ML/HR, PROCAL AT 40 ML/HR, ASPIRIN 81MG PO DAILY, REMDESIVIR 100MG IV DAILY, LEVAQUIN 500MG IV DAILY, SOLU-MEDROL 80MG IV Q8H, DUONEBS TID, PULMICORT NEBS BID, MUCOMYST IN NEB [place] BID, PEPCID 20MG IV DAILY, PROTONIX 40MG IV DAILY, ROBITUSSIN DM 10 ML PO QID, TUSSIONEX 5ML PO Q12H, TESSALON PERLES TID, HUMULIN R SLIDING SCALE, ZINC 220MG PO BID, TIRCOR 160MG PO DAILY, XANAX 0.5MG PO BID PRN, FLONASE DAILY, XIFAXIN 550MG PO BID, CRESTOR 20MG PO HS, ULTRAM 50MG PO Q4H PRN, VALSARTAN 320MG PO DAILY, LEVEMIR 10MG SC BID, LASIX 40MG IV BID, AND ZOFRAN 4MG IV Q6H PRN. 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 transplanted heart: teller heart Associated angina: angina presence unspecified Qualified Code(s): I25.10 - Atherosclerotic heart disease of teller coronary artery without angina pectoris (7) Dyslipidemia Status: Chronic (8) GERD (gastroesophageal reflux disease) Status: Chronic Qualifiers: Esophagitis presence: esophagitis presence not specified Qualified Code(s): K21.9 - Gastro-esophageal reflux disease without esophagitis
[2020-04-11] MEDS: REMDESIVIR (INVESTIGATIONAL DRUG GS-5734) 100 MG in NS 250 ML IV 250 ML IV SCH (12:20)
[2020-04-11 15:20] LABS: CKMB % 5.8 % (<4)
[2020-04-11 15:23] LABS: CREATINE KINASE MB 14.8 ng/mL (0-4.0)
[2020-04-11 15:24] LABS: TROPONIN I 1.61 ng/mL (0-1.5)
[2020-04-11] MEDS ORDERED: TYLENOL 325 MG TAB PO ONE ×2 (17:00→17:17)
[2020-04-11] MEDS ORDERED: BENADRYL INJ 50 MG VIAL IV ONE (17:01)
[2020-04-11] MEDS ORDERED: BENADRYL INJ 50 MG VIAL ONE (17:17)
[2020-04-11 18:35] LABS: CKMB % 5.7 % (<4)
[2020-04-11 18:39] LABS: CREATINE KINASE MB 13.8 ng/mL (0-4.0)
[2020-04-11 18:40] LABS: TROPONIN I 1.73 ng/mL (0-1.5)
[2020-04-11] MEDS ORDERED: SNACK - Diabetic Appropriate PO SCH (20:00)
[2020-04-11] MEDS: CRESTOR TAB 10 MG PO SCH (21:30)
[2020-04-12 05:35] LABS: BASOPHILS % (AUTO) 0.1 % (0.2-1.0); HEMATOCRIT 31.9 % (42.0-54.0); HEMOGLOBIN 10.6 g/dL (13.5-18.0); LYMPHOCYTES # (AUTO) 0.2 X10^3/uL (1.3-2.9); LYMPHOCYTES % (AUTO) 4.4 % (21.0-51.0); MEAN CORPUSCULAR HEMOGLOBIN 27.3 pg (27.0-34.0); MEAN CORPUSCULAR HGB CONC 33.2 g/dL (33.0-35.0); MEAN CORPUSCULAR VOLUME 82.4 fL (80.0-100.0); MEAN PLATELET VOLUME 10.7 fL (7.4-11.0); MONOCYTES # (AUTO) 0.3 x10^3/uL (0.3-0.8); MONOCYTES % (AUTO) 5.1 % (0.0-13.0); NEUTROPHILS # (AUTO) 4.8 x10^3/uL (2.2-4.8); NEUTROPHILS % (AUTO) 90.4 % (42.0-75.0); PLATELET COUNT 38 X10^3/uL (150.0-450.0); RED BLOOD COUNT 3.87 X10^6/uL (4.7-6.0); WHITE BLOOD COUNT 5.3 X10^3/uL (3.6-10.0)
[2020-04-12] MEDS: DUONEB 0.5 MG/3 MG (3 mL) NEB SCH ×2 (05:59→09:00)
[2020-04-12 06:06] LABS: BAND NEUTROPHILS % 5 % (0-10); PLATELET MORPHOLOGY COMMENT NORMAL (NORMAL)
[2020-04-12 06:14] LABS: ALBUMIN 2.7 g/dL (3.4-5.0); CALCIUM 8.9 mg/dL (8.5-10.1); CARBON DIOXIDE 23.6 mmol/L (21-32); COR CA(FOR HYPOALB) 9.9 mg/dL (8.5-10.1); CREATININE 1.85 mg/dL (0.70-1.30); TOTAL PROTEIN 6.2 g/dL (6.4-8.2)
[2020-04-12] MEDS: SOLU-Medrol 40 MG VIAL IVP SCH (06:15)
[2020-04-12] MEDS: TESSALON PERLES PO SCH (06:15)
[2020-04-12] MEDS: NS 1000 ML 1,000 ML IV SCH (06:15)
[2020-04-12] MEDS: HumuLIN R SUBCUT PRN ×2 (06:30→12:15)
--- NOTE | 2020-04-12 07:08 | RAD ---
HISTORYShortness of breathSTUDYChest AP [id number] patient is status post median sternotomy. The heart remains enlarged. Pulmonary venous congestion is present. Bilateral ground-glass infiltrates are again identified which could indicate edema or infection. No pleural effusions are identified. Bony thorax is unremarkable.IMPRESSIONNo significant change from the prior examinationElectronically signed by: LASHELL PEOPLES (Apr 12, 2020 07:07:02)
[2020-04-12] MEDS: MUCOMYST (RESPIRATORY USE ONLY) NEB SCH (09:00)
[2020-04-12] MEDS: PULMICORT NEB TX 0.5 MG NEB SCH (09:00)
[2020-04-12 09:06] LABS: TROPONIN I 1.16 ng/mL (0-1.5)
[2020-04-12] MEDS ORDERED: LOPRESSOR INJ 5 MG AMP ONE ×2 (09:27→10:08)
[2020-04-12] MEDS: LOPRESSOR INJ 5 MG AMP IVP SCH ×3 (09:27→10:41)
[2020-04-12] MEDS: ASPIRIN EC 81 MG PO SCH (09:30)
[2020-04-12] MEDS: LEVEMIR SC SCH (09:30)
[2020-04-12] MEDS: XIFAXAN PO SCH (09:30)
[2020-04-12] MEDS: FLONASE NASAL SPRAY ENOSTRIL SCH (09:30)
[2020-04-12] MEDS: PROTONIX INJ 40 MG VIAL IVP SCH (09:30)
[2020-04-12] MEDS: ZINC SULFATE PO SCH (09:30)
[2020-04-12] MEDS: TUSSIONEX PENNKINETIC SUSP PO SCH (09:30)
[2020-04-12 09:38] LABS: CKMB % 6.5 % (<4); CREATINE KINASE MB 11.1 ng/mL (0-4.0)
[2020-04-12] MEDS: ROBITUSSIN DM PO SCH ×2 (09:41→13:58)
[2020-04-12] MEDS ORDERED: HEPARIN SODIUM IN D5W 25,000 UNITS/500 ML BAG IV PRN (09:44)
[2020-04-12] MEDS ORDERED: LOPRESSOR INJ 5 MG AMP IVP PRN (09:44)
[2020-04-12] MEDS ORDERED: NITROSTAT SL ONE (09:46)
[2020-04-12] MEDS ORDERED: LASIX IVP SCH (09:49)
[2020-04-12] MEDS ORDERED: NITRODUR PATCH 0.1 MG/HR TD SCH (10:00)
[2020-04-12] MEDS ORDERED: HEPARIN SODIUM INJ 5000 UNITS ONE (10:02)
[2020-04-12] MEDS ORDERED: MORPHINE SULFATE INJ 2 MG INJ IVP PRN (10:05)
[2020-04-12] MEDS ORDERED: NITRODUR PATCH 0.2 MG/HR ONE (10:08)
[2020-04-12] MEDS ORDERED: MORPHINE SULFATE INJ 2 MG INJ ONE ×2 (10:08→10:24)
[2020-04-12] MEDS ORDERED: HEPARIN SODIUM INJ 5000 UNITS IVP ONE (10:11)
[2020-04-12] MEDS: LEVAQUIN PREMIX IV 500 MG 500 MG/100 ML BAG IV SCH (10:15)
[2020-04-12 10:19] LABS: ABG BASE EXCESS -4.3 mmol/L (-2.0-2.0); ABG HCO3 20.1 mmol/L (22-26)
[2020-04-12 10:20] LABS: ABG ALLEN TEST POS
[2020-04-12] MEDS ORDERED: MORPHINE SULFATE INJ 2 MG INJ IVP ONE (10:24)
[2020-04-12 10:34] LABS: CKMB % 7.4 % (<4); TROPONIN I 0.72 ng/mL (0-1.5)
[2020-04-12 10:39] LABS: CREATINE KINASE MB 12.3 ng/mL (0-4.0)
[2020-04-12] MEDS: EPLERENONE 50 MG PO SCH (10:58)
[2020-04-12] MEDS: TRICOR TAB 160 MG PO SCH (10:58)
[2020-04-12] MEDS: DIOVAN TAB 160 MG PO SCH (10:59)
[2020-04-12] MEDS ORDERED: NITRODUR PATCH 0.2 MG/HR TD SCH (11:00)
[2020-04-12] MEDS ORDERED: NITRO-BID OINT 2% UD (E.R. USE ONLY) ONE ×2 (11:10→11:11)
[2020-04-12] MEDS ORDERED: CARDIZEM INJ 125 MG VIAL 125 MG in NS 100 ML IV 100 ML IV PRN (11:12)
[2020-04-12] MEDS ORDERED: NS 100 ML IV 100 ML IV ONE (11:16)
[2020-04-12] MEDS ORDERED: CARDIZEM INJ 125 MG VIAL ONE (11:16)
[2020-04-12] MEDS: REMDESIVIR (INVESTIGATIONAL DRUG GS-5734) 100 MG in NS 250 ML IV 250 ML IV SCH (11:20)
[2020-04-12] MEDS ORDERED: NITRO-BID OINT 2% Multi-Dose tube TD SCH (12:00)
[2020-04-12] MEDS ORDERED: LASIX IVP ONE (12:30)
[2020-04-12 12:57] LABS: ABG ALLEN TEST POS; ABG BASE EXCESS -2.7 mmol/L (-2.0-2.0); ABG HCO3 22.6 mmol/L (22-26)
[2020-04-12] MEDS: PEPCID 20 MG IV PREMIX* 20 MG/50 ML BAG IV SCH (13:47)
[2020-04-12] MEDS: XANAX PO PRN (14:00)
[2020-04-12 14:01] VITALS: BP 166/89
== END 2020-04-12 14:40 | disposition critical access hospital (66) | DRG 177 ==
LOC: ER 10:02 → MED/SURG 15:05 → ICU 04-10 21:20
PROVIDERS: ADMIT Obstetrics & Gynecology Obstetrics; ATTEND Internal Medicine
DX: I25.10 Atherosclerotic heart disease of native coronary artery without angina pectoris; Z79.4 Long term (current) use of insulin; E78.2 Mixed hyperlipidemia; R06.02 Shortness of breath; U07.1 COVID-19; E11.65 Type 2 diabetes mellitus with hyperglycemia; R07.89 Other chest pain; J12.89 Other viral pneumonia; K21.9 Gastro-esophageal reflux disease without esophagitis; R79.82 Elevated C-reactive protein (CRP); K74.60 Unspecified cirrhosis of liver; R09.02 Hypoxemia; D50.9 Iron deficiency anemia, unspecified; R50.9 Fever, unspecified